=== PATIENT | female | born 1970 | race Caucasian/White ===

== ENCOUNTER → 2016-06-20 | Outpatient (CLI) | payer BC ==
[~2016-06-20] MED LIST: ACET-2723 PO; CETI-115 PO; DULO60CA25 PO; FERR324T4 PO; LISI-14 PO; MELO-273 PO; MV-M1TAB27 PO
--- NOTE | 2016-06-21 16:25 | NUR ---
O/P MNT r/t pre-DM To: Dr Beard From: Tessy Vaughn RD, CDE Date: June 20, 2016 Patient: Ese Mcnair : 1970 Assessment: Ese came to my office for MNT r/t pre-diabetes, per your referral. Her A1c is 6.2 and verbalizes that she wants to prevent diabetes. She also has hypertension and fibromyalgia, for which she has taken meds that cause weight gain. She is allergic to nuts, cantaloupe and mussels. Her favorite foods are pork and beef, chocolate and salad. She eats 3 meals daily and drinks water, coffee or iced tea. She fixes meals for her family, which includes her and two teen-age boys. She has previously worked as a nurse. Ese states prior to pre-Dm dx, she has had experienced hypoglycemia, and was able to check BG to determine that she did have a low blood glucose. She does not exercise because of her muscle/joint to pain. She also she does not have experience of sport activity or regular exercise. They have membership at the [facility], but she does not swim because she has a fear of the water. When it was suggested that she could stay on the shallow side, she restated her phobia. When it was suggested that perhaps regular exercise in warm water could reduce the symptoms associated with fibromyalgia and reduce medication, she stated that she needs increased medication. When it was stated the activity and exercise could reduce insulin resistance, she states with 25 lb weight loss, she can prevent diabetes. Sleep: 6.5-8 hours nightly, uses C-Pap Exercise: none, pre-contemplative stage A1c: 6.2 Ht: 53 wt: 203 lbs BMI: 36.0 Lifetime hightest weight: 210 lbslost weight through portion control. Diagnosis: Obesity and impaired nutrient utilization r/t physical inactivity aeb weight, A1c and self report. Intervention: Priority modifications 1.Exercise: brief description of pathophysiology of insulin resistance; gave exercise recommendations CDC); reviewed exercise options available; reviewed benefits of water exercise with her medical conditions. Ese was unwilling/unable to commit to specific exercise plan, however minimal. 2.Meal plan: a. reviewed basic DM eating guidelines: Healthy Eating 1-2-3, which help with glycemic control b. weight loss: DPP eating plan 1200 kcal: reduce fat intake in diet; eat healthy whole grains, low-fat diary, vegetables and fruit. Recommended modifications 1.Eat solid protein at breakfast ( to avoid hypoglycemia); consider eggs, cottage cheese, hummus, and low-sodium, low fat meal. M/E: f/u by phone or appointment, prn
== END ==
LOC: MNT 13:23
PROVIDERS: ATTEND Family Medicine
DX: R73.03 Prediabetes (principal)
CPT/HCPCS: 97802